=== PATIENT | male | born 1955 | race Caucasian/White ===

== ENCOUNTER → 2017-07-14 | Outpatient (CLI) | payer MEDICARE, BC | END | disposition home or self-care (01) | LOC: PCVCCLINIC 13:40 | PROVIDERS: ATTEND Internal Medicine | DX: E78.5 Hyperlipidemia, unspecified (principal); R06.09 Other forms of dyspnea; R07.9 Chest pain, unspecified; R10.13 Epigastric pain; F17.201 Nicotine dependence, unspecified, in remission; Z88.0 Allergy status to penicillin | CPT/HCPCS: 80061; 93005; G0463 ==

== ENCOUNTER → 2017-07-27 | Outpatient (CLI) | payer MEDICARE, BC ==
[~2017-07-27] MED LIST: REGADENOSON 0.4 MG/5 ML DISP.SYRIN. IV ONE
--- NOTE | 2017-07-27 18:24 | PCVCIMAG ---
APPROVED REPORT Study performed: 07/27/2017 10:58:50 EXAM: Comprehensive 2D, Doppler, and color-flow Echocardiogram Patient Location: Echo lab Status: routine BSA: 2.07 HR: 78 bpm Rhythm: NSR Other Information Study Quality: Good Risk Factors: Cardiac Risk Factors: Hyperlipidemia, Smoking Indications Dyspnea Smoking History. Hyperlipidemia. 2D Dimensions LVEF(%): 60.67 (>50%) IVSd: 9.43 (7-11mm)LVOT Diam: 18.40 (18-24mm) LVDd: 45.07 mm PWd: 13.41 (7-11mm)Ascending Ao: 41.55 (22-36mm) LVDs: 30.52 (25-40mm) Left Atrium: 40.86 (27-40mm) Aortic Root: 34.86 mm LV Single Plane 4CH: 52.75 % LV Single Plane 2CH: 58.65 %James's LVEF: 55.70 % Biplane EF: 55.0 % Volumes Left Atrial Volume (Systole) Single Plane 4CH: 20.72 mLSingle Plane 2CH: 39.88 mL LA ESV Index: 14.00 mL/m2 Aortic Valve AoV Peak Freddie.: 1.31 m/s AO Peak Gr.: 6.87 mmHgLVOT Max P.95 mmHg LVOT Max V: 1.11 m/s WILLIAM Vmax: 2.26 cm2 Mitral Valve E/A Ratio: 0.7 MV Decel. Time: 214.50 ms MV E Max Freddie.: 0.52 m/s MV A Freddie.: 0.72 m/s TDI E/Lateral E': 6.50E/Medial E': 6.50 Medial E' Freddie.: 0.08 m/s Lateral E' Freddie.: 0.08 m/s Pulmonary Valve PV Peak Gr.: 2.21 mmHg Pulmonary Vein P Vein S: 0.59 m/sP Vein A: 0.33 m/s P Vein D: 0.46 m/sP Vein A Dur.: 83.0 msec P Vein S/D Ratio: 1.28 Left Ventricle The left ventricle is normal size. There is normal LV segmental wall motion. There is normal left ventricular wall thickness. Left ventricular systolic function is normal. The left ventricular ejection fraction is within the normal range. LVEF is 60-65%. The left ventricular diastolic function is normal. Right Ventricle The right ventricle is normal size. The right ventricular systolic function is normal. Atria The left atrium size is normal. The right atrium size is normal. Aortic Valve The aortic valve is normal in structure. Trace aortic regurgitation. There is no aortic valvular stenosis. Mitral Valve The mitral valve is normal in structure. There is no mitral valve regurgitation noted. No evidence of mitral valve stenosis. Tricuspid Valve The tricuspid valve is normal in structure. There is no tricuspid valve regurgitation noted. Pulmonic Valve The pulmonary valve is normal in structure. There is no pulmonic valvular regurgitation. Great Vessels The aortic root is normal in size. IVC is normal in size and collapses with >50% inspiration Pericardium There is no pericardial effusion. <Conclusion> The left ventricle is normal size. LVEF is 60-65%. The aortic valve is normal in structure. Trace aortic regurgitation. The mitral valve is normal in structure. There is no mitral valve regurgitation noted. The tricuspid valve is normal in structure. The pulmonary valve is normal in structure. There is no pericardial effusion.
--- NOTE | 2017-07-27 22:00 | PCVCIMAG ---
APPROVED REPORT Exam: Nuclear Stress Test Indication: Chest pain, Dyspnea Patient Location: Out-Patient Stress Nurse: Ruby Devine RN, Norma Gonzalez RN [place] Tech:Julianna Aguilerahbun [facility] Ht: 5 ft 8 in Wt: 207 lbs BSA: 2.07 m2 HR: 84 bpm BP: 130/84 mmHg BMI: 31.4 Rhythm: SR Medical History Medical History: Age, Former Smoker, Hyperlipidemia Medications: No cardiac medications Allergies: PCN Pretest Chest Pain Characteristics: No chest pain Exercise History: Physically active Physical Disabilities: Knee issues NM EXAM: Myocardial Perfusion REST/STRESS Imaging Protocol: Rest Tc-99m/Stress Tc-99m 1 day Resting Data Rest SPECT myocardial perfusion imaging was performed in supine position 45 minutes following the intravenous injection of 9.9 mCi of Tc-99m Sestamibi. Time of rest injection: 1145 Date: 07/27/2017 Administration Route: IV Administration Site: Right Hand Pharmacologic Stress Pharmacologic stress test was performed by injecting Regadenoson 0.4 mg IV push followed by the intravenous injection of 35.1 mCi of Tc-99m Sestamibi. Time of stress injection: 1315 Date: 07/27/2017 Administration Route: IV Administration Site: Right Hand Gated Stress SPECT was performed 45 minutes after stress injection. The images were gated to evaluate regional wall motion and calculate left ventricular ejection fraction. Study Data Post stress, the left ventricular ejection was 72%.. SSS: 0 SRS: 0 SDS: 0 TID = 0.78. Perfusion There is a large area of severely reduced uptake in the entire segment of the inferior wall which is seen on the stress images as well as the resting images. This area thickens and moves normally and is most consistent with attenuation artifact. Wall Motion Normal left ventricular wall motion. Nuclear Conclusion 1. LOW RISK STUDY Interpreted by: Jorge Can MD Electronically Approved: 07/27/2017 21:57:02 Stress Test Details Stress Test: Pharmacologic stress was paired with low level exercise. Reason for pharmacologic stress test: physical limitation, bad knees. HR Resting HR: 84 bpmMax Heart Rate (APMHR): 157 bpm Max HR Achieved: 150 bpmTarget HR (85% APMHR): 133 bpm % of APMHR: 95 Recovery HR: 106 bpm BP Resting BP: 130/84 mmHg Max BP: 128/84 mmHg ECG Resting ECG: Sinus Rhythm Stress ECG: Sinus Tachycardia Recovery ECG: Sinus Tachycardia Recovery ST Deviation: 1.05 mm Clinical Reason for Termination: Completed protocol Stress Symptoms: Chest pain, Dyspnea Exercise duration: 4 min 00 sec Exercise capacity: 1.6 METs Symptoms resolved during recovery. Stress ECG Conclusion 1. ADEQUATE RESPONSE TO IV LEXISCAN 2. INADEQUATE HEART RATE RESPONSE FOR ECG DIAGNOSIS <Conclusion> 1. ADEQUATE RESPONSE TO IV LEXISCAN 2. INADEQUATE HEART RATE RESPONSE FOR ECG DIAGNOSIS
--- NOTE | 2017-07-27 22:03 | PCVCIMAG ---
EXAM: ABDOMINAL ULTRASOUND COMPLETE INDICATION: Abdominal pain FINDINGS: Gallbladder: No gallstones. No wall thickening or abnormal pericholecystic fluid. Liver: Normal in size measuring 16.4 cm in length. No focal masses. Increased echogenicity throughout the liver most compatible with diffuse fatty infiltration. Bile ducts: No intra or extra hepatic bile duct dilatation. The common bile duct measures 4.6 mm. Pancreas: Unremarkable where seen. Spleen: Normal in size measuring 11.5 cm in greatest dimension. No focal masses. Right kidney: No hydronephrosis. Length measures 12.7 cm. Left kidney: No hydronephrosis. Length measures 11.0 cm. Inferior vena cava: Normal in size where seen. Aorta: Normal in caliber where seen. IMPRESSION: Presumed fatty infiltration of the liver. Abdomen otherwise unremarkable. Gallbladder is normal in appearance. LOC:[id number]
== END | disposition home or self-care (01) ==
LOC: PCVCIMAG 10:05
PROVIDERS: ATTEND Internal Medicine
DX: R07.9 Chest pain, unspecified (principal); R06.00 Dyspnea, unspecified; R10.11 Right upper quadrant pain; E78.5 Hyperlipidemia, unspecified; Z87.891 Personal history of nicotine dependence
CPT/HCPCS: 76700; 78452; 93017; 93306; A9500; J2785